=== PATIENT | female | born 1975 | race Caucasian/White ===

== ENCOUNTER → 2019-01-25 | Outpatient (CLI) | payer OTHER ==
[~2019-01-25] MED LIST: CELE200C PO; OXYC-432 PO; PANT40TA5 PO; TIZA4TAB2 PO
[2019-01-25 12:15] LABS: BASOPHILS # (AUTO) 0.03 x10^3/uL (0-0.1); BASOPHILS % (AUTO) 0 % (0-1); EOSINOPHILS # (AUTO) 0.11 x10^3/uL (0-0.4); EOSINOPHILS % (AUTO) 1 % (1-7); LYMPHOCYTES # (AUTO) 2.79 x10^3/uL (1-3.4); LYMPHOCYTES % (AUTO) 31 % (22-44); MD NO; MEAN CORPUSCULAR HEMOGLOBIN 32.5 pg (27.0-34.8); MEAN CORPUSCULAR HGB CONC 33.2 g/dL (32.4-35.8); MEAN CORPUSCULAR VOLUME 97.9 fL (80-100); MEAN PLATELET VOLUME 7.9 fL (7.4-10.4); MONOCYTES # (AUTO) 0.62 x10^3/uL (0.2-0.8); MONOCYTES % (AUTO) 7 % (2-9); NEUTROPHILS % (AUTO) 61 % (42-75); PLATELET COUNT 289 x10^3/uL (130-400); RED BLOOD COUNT 5.18 x10^6/uL (3.82-5.3); RED CELL DISTRIBUTION WIDTH 12.8 % (9.6-15.2)
[2019-01-25 12:15] LABS: MICROSCOPIC INDICATED
[2019-01-25 12:16] LABS: CULTURE INDICATED? YES
[2019-01-25 12:23] LABS: PROTHROMBIN TIME 10.5 Seconds (9.6-11.5)
[2019-01-25 12:26] LABS: ANION GAP 8 mmol/L (5-15); CALCIUM 8.9 mg/dL (8.5-10.1); CHLORIDE 107 mmol/L (98-107); CREATININE 0.74 mg/dL (0.55-1.02)
== END | disposition home or self-care (01) ==
LOC: STAR 11:19
PROVIDERS: ATTEND Neurological Surgery
DX: Z01.818 Encounter for other preprocedural examination (principal); M51.36 Other intervertebral disc degeneration, lumbar region; M48.061 Spinal stenosis, lumbar region without neurogenic claudication
CPT/HCPCS: 36415; 71046; 80048; 81001; 85025; 85610; 85730; 87086; 93005

== ENCOUNTER 2019-01-31 07:00 | Inpatient (IN) | payer OTHER ==
[~2019-01-31] VITALS: Ht 170.2 cm; Wt 135.8 kg
[~2019-01-31 07:00] MED LIST changes: +BACITRACIN 50,000 UNIT ONE; +BUPIVACAINE/PF 0.5% ONE; +EPINEPHRINE 1 MG/ML, 1ML ONE; +THROMBIN 5,000 UNIT VIAL TP ONE; +VANCOMYCIN 1,000 MG ONE
[2019-01-31 13:20] VITALS: BP 149/104
[2019-01-31] MEDS ORDERED: LACTATED RINGERS 1,000 ML IV SCH (13:25)
[2019-01-31] MEDS ORDERED: ACETAMINOPHEN 500 MG TABLET PO ONE (13:30)
[2019-01-31] MEDS ORDERED: GABAPENTIN 300 MG CAPSULE PO ONE (13:30)
[2019-01-31] MEDS ORDERED: SCOPOLAMINE PATCH, 1.5MG PATCH.TD72 TD ONE (13:30)
[2019-01-31] MEDS ORDERED: MIDAZOLAM 1 MG/ML, 2ML ONE (13:33)
[2019-01-31] MEDS ORDERED: FENTANYL PF 250 MCG/5ML ONE (13:34)
[2019-01-31] MEDS ORDERED: FENTANYL PF 100 MCG/2ML ONE ×4 (13:34→18:33)
[2019-01-31] MEDS ORDERED: PROPOFOL 100 ML ONE ×2 (13:36→17:13)
[2019-01-31 14:12] LABS: HCG UR SG 1.028 (1.003-1.030)
[2019-01-31] MEDS ORDERED: HYDROmorphone 2 MG/ML, 1ML IVPush PRN (14:30)
[2019-01-31] MEDS ORDERED: OXYcodone 5 MG/5 ML ORAL.SOL UDC PO PRN ×2 (14:30→18:30)
[2019-01-31] MEDS ORDERED: LORazepam 2 MG/ML, 1ML IVPush PRN (14:30)
[2019-01-31] MEDS ORDERED: ONDANSETRON 2MG/ML, 2ML IV PRN ×2 (14:30→20:30)
[2019-01-31] MEDS ORDERED: ONDANSETRON ODT 8 MG PO PRN (14:30)
[2019-01-31] MEDS ORDERED: hydrALAzine 20 MG/ML, 1ML IV PRN (14:30)
[2019-01-31] MEDS ORDERED: PROMETHAZINE 25 MG/ML, 1ML IV PRN (14:30)
[2019-01-31] MEDS ORDERED: LABETALOL 5MG/ML, 20ML IV PRN (14:30)
[2019-01-31] MEDS ORDERED: FENTANYL PF 100 MCG/2ML IV PRN (14:30)
[2019-01-31] MEDS ORDERED: DEXAMETHASONE 4 MG/ML, 1ML ONE (15:28)
[2019-01-31] MEDS ORDERED: NEOSTIGMINE 1 MG/ML, 10ML ONE (15:28)
[2019-01-31] MEDS ORDERED: GLYCOPYRROLATE 0.2MG/1ML, 5ML ONE (15:28)
[2019-01-31] MEDS ORDERED: PROPOFOL 10 MG/ML, 20ML ONE (15:28)
[2019-01-31] MEDS ORDERED: SUCCINYLCHOLINE 20 MG/ML, 10ML ONE (15:28)
[2019-01-31] MEDS ORDERED: CEFAZOLIN 1,000 MG ONE (15:28)
[2019-01-31] MEDS ORDERED: ROCURONIUM 10MG/ML,5ML ONE (15:28)
[2019-01-31] MEDS ORDERED: ONDANSETRON 2MG/ML, 2ML ONE (15:28)
[2019-01-31] MEDS ORDERED: SUGAMMADEX 200 MG/2 ML IVPush ONE ×2 (17:37)
[2019-01-31] MEDS ORDERED: MEPERIDINE/PF 25MG/ML,1ML ONE (18:33)
[2019-01-31] MEDS ORDERED: HYDROmorphone 2 MG/ML, 1ML ONE (18:34)
[2019-01-31] MEDS ORDERED: OXYcodone 5 MG/5 ML ORAL.SOL UDC ONE (18:34)
[2019-01-31] MEDS ORDERED: DIAZEPAM 5 MG/ML, 2ML ONE (18:43)
[2019-01-31] MEDS: DIAZEPAM 5 MG/ML, 2ML IVPush PRN ×2 (18:48→19:09)
[2019-01-31] MEDS ORDERED: MEPERIDINE/PF 25MG/ML,1ML IVPush PRN (19:00)
[2019-01-31] MEDS ORDERED: METHOCARBAMOL 1000MG/10 ML IVPB ONE (19:00)
[2019-01-31] MEDS ORDERED: HYDROmorphone 1 MG/ML, 1ML INJ ONE (19:18)
[2019-01-31] MEDS: HYDROmorphone 2 MG/ML, 1ML IVPush PRN ×4 (19:22→23:09)
[2019-01-31] MEDS ORDERED: METHOCARBAMOL 1,000 MG in DEXTROSE 5% 100 ML IV ONE (19:30)
[2019-01-31] MEDS ORDERED: DIPHENHYDRAMINE 25 MG CAPSULE PO PRN (20:30)
[2019-01-31] MEDS ORDERED: MAGNESIUM HYDROXIDE 8%, 30ML UDC PO PRN (20:30)
[2019-01-31] MEDS ORDERED: DIPHENHYDRAMINE 50 MG/ML, 1ML IVPush PRN (20:30)
[2019-01-31] MEDS ORDERED: BISACODYL 10 MG SUPP PR PRN (20:30)
[2019-01-31] MEDS ORDERED: PHARMACY MAY ADJ FOR RENAL FX MC PRN (20:30)
[2019-01-31] MEDS ORDERED: PROMETHAZINE 25 MG/ML, 1ML IM PRN (20:30)
[2019-01-31] MEDS ORDERED: HYDROcodone/APAP 10/325 MG TABLET PO PRN (20:30)
[2019-01-31] MEDS ORDERED: DIPHENHYDRAMINE 50 MG/ML, 1ML IM PRN (20:30)
[2019-01-31] MEDS: PANTOPRAZOLE MC SCH (21:00)
[2019-01-31] MEDS: D5%-0.9% NACL+KCL 20MEQ 1,000 ML IV SCH (21:49)
[2019-01-31 23:20] VITALS: BP 114/65
[2019-01-31] MEDS ORDERED: HYDROmorphone 2MG TABLET PO PRN (23:29)
[2019-01-31] MEDS ORDERED: HYDROmorphone 2 MG/ML, 1ML IM PRN (23:29)
[2019-01-31] MEDS: CEFAZOLIN PMX 1GM/50ML 50 ML IVPB SCH (23:41)
[2019-01-31] MEDS: OXYcodone/APAP 10/325MG TABLET PO PRN (23:46)
[2019-02-01] MEDS: OXYcodone/APAP 10/325MG TABLET PO PRN ×5 (03:38→23:05)
[2019-02-01 04:13] VITALS: BP 114/83
[2019-02-01] MEDS: PANTOPRAZOLE MC SCH ×3 (05:00→21:00)
[2019-02-01 05:53] LABS: BASOPHILS # (AUTO) 0.02 x10^3/uL (0-0.1); BASOPHILS % (AUTO) 0 % (0-1); EOSINOPHILS % (AUTO) 0 % (1-7); LYMPHOCYTES % (AUTO) 9 % (22-44); MD NO; MEAN CORPUSCULAR HEMOGLOBIN 32.5 pg (27.0-34.8); MEAN CORPUSCULAR HGB CONC 33.6 g/dL (32.4-35.8); MEAN CORPUSCULAR VOLUME 96.6 fL (80-100); MEAN PLATELET VOLUME 7.9 fL (7.4-10.4); MONOCYTES # (AUTO) 0.58 x10^3/uL (0.2-0.8); MONOCYTES % (AUTO) 4 % (2-9); NEUTROPHILS # (AUTO) 11.32 x10^3/uL (1.8-6.8); NEUTROPHILS % (AUTO) 86 % (42-75); PLATELET COUNT 271 x10^3/uL (130-400); RED BLOOD COUNT 4.05 x10^6/uL (3.82-5.3); RED CELL DISTRIBUTION WIDTH 12.6 % (9.6-15.2)
[2019-02-01 05:57] LABS: CALCIUM 8.1 mg/dL (8.5-10.1)
[2019-02-01 05:58] LABS: ANION GAP 7 mmol/L (5-15); CHLORIDE 106 mmol/L (98-107); CREATININE 0.83 mg/dL (0.55-1.02)
[2019-02-01] MEDS: ENOXAPARIN 40 MG/0.4 ML SQ SCH (06:09)
[2019-02-01] MEDS: D5%-0.9% NACL+KCL 20MEQ 1,000 ML IV SCH ×2 (06:30→16:30)
[2019-02-01 07:22] VITALS: BP 121/79
[2019-02-01] MEDS: CEFAZOLIN PMX 1GM/50ML 50 ML IVPB SCH (07:56)
[2019-02-01] MEDS: SENNA/DOCUSATE TABLET PO SCH (07:56)
[2019-02-01] MEDS: PANTOPROZOLE 40MG TABLET PO SCH ×2 (07:57→20:15)
[2019-02-01] MEDS: TIZANIDINE 4MG TABLET PO PRN ×2 (08:00→23:05)
[2019-02-01 13:40] VITALS: BP 129/83
[2019-02-01 18:43] VITALS: BP 106/72
[2019-02-02] MEDS: D5%-0.9% NACL+KCL 20MEQ 1,000 ML IV SCH ×2 (02:30→12:30)
[2019-02-02 03:08] VITALS: BP 94/68
[2019-02-02] MEDS: OXYcodone/APAP 10/325MG TABLET PO PRN ×3 (04:11→12:34)
[2019-02-02] MEDS: ENOXAPARIN 40 MG/0.4 ML SQ SCH (04:15)
[2019-02-02] MEDS: PANTOPRAZOLE MC SCH ×2 (04:33→13:00)
[2019-02-02] MEDS: SENNA/DOCUSATE TABLET PO SCH (08:20)
[2019-02-02] MEDS: PANTOPROZOLE 40MG TABLET PO SCH (08:21)
[2019-02-02] MEDS: TIZANIDINE 4MG TABLET PO PRN (08:21)
[2019-02-02 08:31] VITALS: BP 111/68
[2019-02-02] MEDS ORDERED: OXYC-307 PO (09:07)
[2019-02-02] MEDS ORDERED: TIZA4CAP PO (09:08)
== END 2019-02-02 13:49 | disposition home or self-care (01) | DRG 455 ==
LOC: ORIP 12:56 → 4NE 20:00 → DCLOUNGE 02-02 13:44
PROVIDERS: ADMIT Neurological Surgery; ATTEND Neurological Surgery
PROC: 0SG3071 Fusion of Lumbosacral Joint with Autologous Tissue Substitute, Posterior Approach, Posterior Column, Open Approach (ICD-10-PCS; 2019-01-31)
PROC: 01NB0ZZ Release Lumbar Nerve, Open Approach (ICD-10-PCS; 2019-01-31)
PROC: 01NR0ZZ Release Sacral Nerve, Open Approach (ICD-10-PCS; 2019-01-31)
PROC: 0SB40ZZ Excision of Lumbosacral Disc, Open Approach (ICD-10-PCS; 2019-01-31)
PROC: 4A11X4G Monitoring of Peripheral Nervous Electrical Activity, Intraoperative, External Approach (ICD-10-PCS; 2019-01-31)
PROC: 8E0W0CZ Robotic Assisted Procedure of Trunk Region, Open Approach (ICD-10-PCS; 2019-01-31)
PROC: 0SG30AJ Fusion of Lumbosacral Joint with Interbody Fusion Device, Posterior Approach, Anterior Column, Open Approach (ICD-10-PCS; principal; 2019-01-31 15:00)
DX: M48.07 Spinal stenosis, lumbosacral region (principal); M51.17 Intervertebral disc disorders with radiculopathy, lumbosacral region; G56.02 Carpal tunnel syndrome, left upper limb
CPT/HCPCS: 36415; 72100; S0020; 72131; 80048; 81025; 85025; C1713; C1729; C1776; G0378; J0171; J0690; J1100; J1170; J1650; J2250; J2405; J2704; J2710; J3010; J3360; J3370; A4648; C1763; J0330; J2175; J2800; J3480

== ENCOUNTER → 2020-04-29 | Outpatient (CLI) | payer OTHER ==
[~2020-04-29] MED LIST changes: -BACITRACIN 50,000 UNIT ONE; -BUPIVACAINE/PF 0.5% ONE; -EPINEPHRINE 1 MG/ML, 1ML ONE; +OXYC-380 PO; -OXYC-432 PO; +OXYC15TA3 PO; +OXYC1TAB18 PO; -PANT40TA5 PO; +PANT40TA6 PO; +PREG75CA PO; -THROMBIN 5,000 UNIT VIAL TP ONE; +TIZA4CAP PO; -VANCOMYCIN 1,000 MG ONE
[2020-04-29 11:14] LABS: ALBUMIN 3.7 g/dL (3.4-5.0); ANION GAP 7 mmol/L (5-15); CALCIUM 8.8 mg/dL (8.5-10.1); CHLORIDE 109 mmol/L (98-107); INTERNATIONAL NORMALIZED RATIO 1.01 (0.93-1.1); PROTHROMBIN TIME 10.8 Seconds (9.6-11.5)
[2020-04-29 11:19] LABS: ALANINE AMINOTRANSFERASE 27 U/L (12-78); ALKALINE PHOSPHATASE 76 U/L (45-117); BILIRUBIN,TOTAL 0.3 mg/dL (0.2-1.0); CREATININE 0.72 mg/dL (0.55-1.02); TOTAL PROTEIN 7.4 g/dL (6.4-8.2)
[2020-04-29 11:21] LABS: BASOPHILS % (AUTO) 1 % (0-1); EOSINOPHILS % (AUTO) 1 % (1-7); LYMPHOCYTES % (AUTO) 33 % (22-44); MEAN PLATELET VOLUME 8.2 fL (7.4-10.4); MONOCYTES % (AUTO) 8 % (2-9); NEUTROPHILS % (AUTO) 57 % (42-75); PLATELET COUNT 259 x10^3/uL (130-400); RED BLOOD COUNT 4.77 x10^6/uL (3.82-5.3); RED CELL DISTRIBUTION WIDTH 12.3 % (9.6-15.2)
[2020-04-29 11:22] LABS: MD NO
== END | disposition home or self-care (01) ==
LOC: STAR 09:59
PROVIDERS: ATTEND Orthopaedic Surgery
DX: Z01.810 Encounter for preprocedural cardiovascular examination (principal); Z01.818 Encounter for other preprocedural examination; M16.11 Unilateral primary osteoarthritis, right hip; M25.551 Pain in right hip; Z20.822 Contact with and (suspected) exposure to COVID-19; Z79.01 Long term (current) use of anticoagulants
CPT/HCPCS: 36415; 80053; 83036; 85025; 85610; 85730; 87081; 93005; U0003

== ENCOUNTER 2020-05-03 09:17 | Day surgery (SDC) | payer OTHER ==
[~2020-05-03] VITALS: Ht 170.2 cm; Wt 130.4 kg
[~2020-05-03 09:17] MED LIST changes: +ACETAMINOPHEN 650 MG/20.3 ML UDC PO PRN; +BISACODYL 10 MG SUPP PR PRN; +CEFAZOLIN PMX 2GM/50ML 50 ML IVPB SCH; +DIPHENHYDRAMINE 50 MG CAPSULE PO PRN; +DOCUSATE 100 MG CAPSULE PO SCH; +EPINEPHRINE 1 MG/ML, 1ML ONE; +HYDROcodone/APAP 5/325 TABLET PO PRN; +KETOROLAC 60 MG/2 ML ONE; +MAGNESIUM HYDROXIDE 8%, 30ML UDC PO PRN; +NS + 20MEQ KCL 1,000 ML IV SCH; +ONDANSETRON 2MG/ML, 2ML IV PRN; +ONDANSETRON 4 MG TABLET PO PRN; +OXYcodone IR 5MG TABLET PO PRN; +PREGABALIN 75 MG CAPSULE PO SCH; +ROPIvacaine/PF 0.5%, 20 ML ONE; +ROPIvacaine/PF 0.5%, 30 ML ONE; +SENNA/DOCUSATE TABLET PO PRN; +SODIUM CHLORIDE 0.9% 50 ML ONE; +TRANEXAMIC ACID 100 MG/ML, 10ML ONE; +VANCOMYCIN 1,000 MG ONE; +ZOLPIDEM 5MG TABLET PO PRN
[2020-05-03] MEDS ORDERED: MIDAZOLAM 1 MG/ML, 2ML ONE (09:22)
[2020-05-03] MEDS ORDERED: FENTANYL PF 250 MCG/5ML ONE (09:24)
[2020-05-03 09:43] VITALS: BP 124/90
[2020-05-03] MEDS ORDERED: CHLORHEXIDINE 15 ML UDC ONE (09:51)
[2020-05-03] MEDS ORDERED: GABAPENTIN 300 MG CAPSULE PO ONE (10:00)
[2020-05-03] MEDS ORDERED: LACTATED RINGERS 1,000 ML IV SCH (10:00)
[2020-05-03] MEDS ORDERED: ACETAMINOPHEN 500 MG TABLET PO ONE (10:00)
[2020-05-03] MEDS ORDERED: CHLORHEXIDINE 15 ML UDC PO ONE (10:00)
[2020-05-03] MEDS ORDERED: ONDANSETRON 2MG/ML, 2ML IVPush PRN (10:30)
[2020-05-03] MEDS ORDERED: METHOCARBAMOL 1,000 MG in DEXTROSE 5% 100 ML IV PRN (10:30)
[2020-05-03] MEDS ORDERED: DIAZEPAM 5 MG/ML, 2ML IVPush PRN (10:30)
[2020-05-03] MEDS ORDERED: ACETAMINOPHEN 325 MG TABLET PO PRN (10:30)
[2020-05-03] MEDS ORDERED: OXYcodone 5 MG/5 ML ORAL.SOL UDC PO PRN (10:30)
[2020-05-03] MEDS ORDERED: hydrALAzine 20 MG/ML, 1ML IV PRN (10:30)
[2020-05-03] MEDS ORDERED: LABETALOL 5MG/ML, 20ML IV PRN (10:30)
[2020-05-03] MEDS ORDERED: PROMETHAZINE 25 MG/ML, 1ML IVPush PRN (10:30)
[2020-05-03] MEDS ORDERED: DIPHENHYDRAMINE 50 MG/ML, 1ML IVPush PRN (10:30)
[2020-05-03] MEDS ORDERED: NEOSTIGMINE 1 MG/ML, 10ML ONE (11:19)
[2020-05-03] MEDS ORDERED: GLYCOPYRROLATE 0.2MG/1ML, 5ML ONE (11:19)
[2020-05-03] MEDS ORDERED: PROPOFOL 10 MG/ML, 20ML ONE (11:59)
[2020-05-03] MEDS ORDERED: CEFAZOLIN 1,000 MG ONE ×2 (11:59)
[2020-05-03] MEDS ORDERED: ONDANSETRON 2MG/ML, 2ML ONE (12:00)
[2020-05-03] MEDS ORDERED: ROCURONIUM 10MG/ML,5ML ONE (12:00)
[2020-05-03] MEDS ORDERED: DEXAMETHASONE 4 MG/ML, 1ML ONE ×2 (12:00)
[2020-05-03] MEDS ORDERED: LIDOCAINE-MPF 2% ,5ML ONE ×2 (12:00)
[2020-05-03] MEDS ORDERED: MEPERIDINE/PF 25MG/ML,1ML ONE ×2 (12:52→13:37)
[2020-05-03] MEDS: MEPERIDINE/PF 25MG/0.5ML IVPush PRN ×2 (12:54→13:38)
[2020-05-03] MEDS ORDERED: FENTANYL PF 100 MCG/2ML ONE ×2 (13:01→13:17)
[2020-05-03] MEDS: FENTANYL PF 100 MCG/2ML IV PRN ×4 (13:04→13:25)
[2020-05-03] MEDS ORDERED: OXYcodone 5 MG/5 ML ORAL.SOL UDC ONE (13:16)
[2020-05-03] MEDS ORDERED: HYDROmorphone 2 MG/ML, 1ML ONE (13:26)
[2020-05-03] MEDS: HYDROmorphone 1 MG/ML, 1ML INJ IVPush PRN ×5 (13:28→14:09)
[2020-05-03] MEDS ORDERED: LORazepam 2 MG/ML, 1ML ONE (13:42)
[2020-05-03] MEDS ORDERED: LORazepam 2 MG/ML, 1ML IVPush PRN (14:00)
[2020-05-03] MEDS ORDERED: HYDROmorphone 1 MG/ML, 1ML INJ ONE (14:06)
[2020-05-03] MEDS ORDERED: ASPIRIN 81 MG TABLET EC PO SCH (18:00)
[2020-05-04] MEDS ORDERED: DEXAMETHASONE 4 MG/ML, 1ML IVPush SCH (06:00)
== END 2020-05-03 17:46 | disposition home or self-care (01) ==
LOC: OUT 09:17
PROVIDERS: ATTEND Orthopaedic Surgery
DX: M16.11 Unilateral primary osteoarthritis, right hip (principal); M25.751 Osteophyte, right hip; K21.9 Gastro-esophageal reflux disease without esophagitis; E66.01 Morbid (severe) obesity due to excess calories; Z79.899 Other long term (current) drug therapy; Z88.5 Allergy status to narcotic agent; Z98.890 Other specified postprocedural states; Z82.3 Family history of stroke; Z82.61 Family history of arthritis
CPT/HCPCS: 27130; 36415; 72170; 73501; 84702; 97162; C1713; C1776; J0171; J0690; J1100; J1170; J1885; J2060; J2175; J2250; J2405; J2704; J2710; J2795; J2800; J3010; J3370; J7120; 76000